=== PATIENT | male | born 1960 | race Two or more races ===

== ENCOUNTER 2019-11-23 14:33 | Outpatient (CLI) | payer OTHER | END 2019-11-23 14:34 | disposition home or self-care (01) | LOC: MRI 14:33 | DX: M25.561 Pain in right knee (principal) | CPT/HCPCS: 73718 ==

== ENCOUNTER 2019-11-28 15:20 | Outpatient (CLI) | payer OTHER | END 2019-11-28 15:31 | disposition home or self-care (01) | LOC: RAD 15:20 | PROVIDERS: ATTEND Orthopaedic Surgery | DX: R07.89 Other chest pain (principal) ==

== ENCOUNTER 2019-12-08 11:29 | Outpatient (CLI) | payer OTHER | END 2019-12-08 11:31 | disposition home or self-care (01) | LOC: TOM 11:29 | PROVIDERS: ATTEND Surgery | DX: K80.20 Calculus of gallbladder without cholecystitis without obstruction (principal); K40.90 Unilateral inguinal hernia, without obstruction or gangrene, not specified as recurrent; K42.9 Umbilical hernia without obstruction or gangrene ==

== ENCOUNTER 2021-01-22 12:37 | Outpatient (CLI) | payer OTHER | END 2021-01-22 12:47 | disposition home or self-care (01) | LOC: RAD 12:37 | PROVIDERS: ATTEND Orthopaedic Surgery Sports Medicine | DX: M17.11 Unilateral primary osteoarthritis, right knee (principal); M17.12 Unilateral primary osteoarthritis, left knee ==

== ENCOUNTER 2021-09-11 12:18 | Outpatient (CLI) | payer OTHER | END 2021-09-11 12:33 | disposition home or self-care (01) | LOC: SONOGRAMA 12:18 | PROVIDERS: ATTEND Surgery | DX: K80.20 Calculus of gallbladder without cholecystitis without obstruction (principal) ==

== ENCOUNTER 2021-10-17 10:35 | Outpatient (CLI) | payer OTHER | END 2021-10-17 10:50 | disposition home or self-care (01) | LOC: TOM 10:35 | PROVIDERS: ATTEND Surgery | DX: K57.00 Diverticulitis of small intestine with perforation and abscess without bleeding (principal) ==